=== PATIENT | male | born 1945 | race Hispanic/Latino ===

== ENCOUNTER 2017-03-03 06:39 | Day surgery (SDC) | payer MEDICARE, OTHER ==
[2017-02-14 12:50] VITALS: BMI 31.6
[2017-03-03 07:10] LABS: ADD MANUAL DIFF? NO
[2017-03-03 07:13] LABS: BASO # 0.08 K/mm3 (0.0-2.0); BASO % 1.3 % (0.0-3.0); EOS # 0.4 (0.0-0.7); EOS % 6.7 % (1.5-5.0); GRAN # 3.12 (1.4-6.5); HEMATOCRIT 41.2 % (42.0-52.0); LYMPH # 1.9 (1.2-3.4); LYMPH % 30.9 % (22.0-35.0); MEAN CELL VOLUME 85.5 fL (80.0-105.0); MEAN CORPUSCULAR HEMOGLOBIN 29.7 pg (25.0-35.0); MEAN CORPUSCULAR HGB CONC 34.7 g/dl (31.0-37.0); MEAN PLATELET VOLUME 9.6 fl (7.0-11.0); MONO # 0.6 (0.1-0.6); MONO % 10.1 % (1.0-6.0); PLATELET COUNT 200 10^3/uL (120.0-450.0); RED CELL DISTRIBUTION WIDTH 14.1 % (11.5-14.5); WHITE BLOOD COUNT 6.1 10^3/ul (4.5-11.0)
[2017-03-03] MEDS ORDERED: Lidocaine 2% Inj (20ml) ONE (07:14)
[2017-03-03] MEDS ORDERED: Iohexol 350mgl/ml 50 ML ONE (07:15)
[2017-03-03] MEDS ORDERED: Atropine 0.4 mg/ml Inj (1 mL) ONE (07:15)
[2017-03-03 07:22] LABS: BLOOD UREA NITROGEN 14 mg/dL (7-21); CALCIUM 9.3 mg/dL (8.4-10.5); CARBON DIOXIDE 30 mmol/L (21-33); CHLORIDE 104 mmol/L (98-107); GFR AFRICAN-AMERICAN > 60; GLUCOSE,RANDOM 97 mg/dL (70-110); POTASSIUM 3.8 mmol/L (3.6-5.0); SODIUM 140 mmol/L (132-148)
[2017-03-03 07:25] LABS: INR 1.01 (0.93-1.08); PARTIAL THROMBOPLASTIN TIME 27.9 Seconds (23.7-30.8)
[2017-03-03] MEDS ORDERED: Midazolam 2 MG/2 ML VIAL ONE ×2 (08:01→08:14)
[2017-03-03] MEDS ORDERED: Sodium Chloride 0.9% 1,000 ML IV SCH (08:45)
[2017-03-03 09:00] VITALS: TEMP 97.4
--- NOTE | 2017-03-03 10:02 | CARDCATH ---
PROCEDURE DATE: 03/03/2017 HISTORY OF PRESENT ILLNESS: The patient is a 71-year-old male who presents with exertional shortness of breath. A stress test revealed atypical defects consistent with ischemia. A cardiac catheterization was recommended. PROCEDURE: Left heart catheterization with coronary angiography and left ventriculogram. The right femoral artery was cannulated with a 6-Iranian sheath. There were no complications. The findings on catheterization revealed a left ventricle that contracted normally. Estimated ejecti on fraction is 60%. His coronary anatomy revealed a right dominant circulation. The RCA revealed diffuse atherosclerosis without critical lesions. The left main artery revealed calcification, but was free of significant disease. The LAD and diagonal vessels revealed diffuse atherosclerosis with calcification, but no critical les ions noted. The circumflex artery and obtuse marginal branches were free of significant disease. The circumflex artery and obtuse marginal branches revealed intimal irregularities without significan t stenosis. Angio-Seal was used to close the femoral artery site. The patient tolerated the procedure well. SUMMARY: The procedure revealed calcification and atherosclerosis throughout the coronary tree, but no critical lesions noted. Left ventricular function is normal. Given these findings, the patient's treatment needs to be continued medical therapy. Weight loss and an exercise program was recommended to the patient. Samir Jha MD cc: [id number] TT: 03/03/2017 10:02:01 en
--- NOTE | 2017-03-03 10:59 | CARD ---
APPROVED REPORT EKG Measurement Heart [id number] <Conclusion> Normal sinus rhythm Normal ECG
[2017-03-03 13:07] VITALS: RESP 20
[2017-03-03 14:10] VITALS: BP 118/74; PULSE 57; O2SAT 99
== END 2017-03-03 14:40 | disposition home or self-care (01) ==
LOC: CATH 06:39
PROVIDERS: ATTEND Internal Medicine Cardiovascular Disease
DX: I25.10 Atherosclerotic heart disease of native coronary artery without angina pectoris (principal); E78.00 Pure hypercholesterolemia, unspecified
CPT/HCPCS: 36415; 80048; 85025; 85610; 85730; 86850; 86900; 93005; 93458; 99152; C1760; C1769; C2629; J1644; J2250; J3010; J7030; J7040 ×2; Q9967

== ENCOUNTER 2019-02-08 07:19 | Outpatient (CLI) | payer MEDICARE | END 2019-02-08 07:20 | disposition home or self-care (01) | LOC: CARDIO 07:19 ==